=== PATIENT | female | born 1985 | race African-American/Black ===

== ENCOUNTER 2017-03-14 00:19 | Emergency (ER) | payer MEDICAID, OTHER ==
[~2017-03-14] VITALS: Ht 170.2 cm; Wt 127.0 kg
[2017-03-14] MEDS ORDERED: NKM (00:29)
--- NOTE | 2017-03-14 00:52 | Emergency Room Report ---
History of Present Illness General Chief Complaint: Dyspnea/Respdistress Source: Patient Present Illness HPI Patient reports that she has been feeling more short of breath recently With increased exertion Patient reports that she has a cold and flu symptom and feels that this is worsening the symptom Denies any chest pain however she does feel short of breath Also feels worse with laying flat Patient has increased cough denies any vomiting or diarrhea denies any recent travel denies any calf pain or swelling Allergies: Coded Allergies: No Known Allergies (Verified Allergy, Mild, 04/25/07) Patient History Past Medical History: see triage record Pertinent Family History: none Last Menstrual Period: 03/07/17 Now: No Reviewed Nursing Documentation: PMH: Agreed, PSxH: Agreed Nursing Documentation-PMH Past Medical History: No Stated History Review of Systems All Other Systems: negative except mentioned in HPI Physical Exam Vital Signs Date Time Temp Pulse Resp B/P (MAP) Pulse Ox O2 Delivery O2 Flow Rate FiO2 03/14/17 00:25 99.0 107 16 181/98 96 Room Air Sp02 EP Interpretation: reviewed, normal General Appearance: no apparent distress Head: normocephalic, atraumatic Eyes: bilateral eye PERRL, bilateral eye EOMI ENT: hearing grossly normal, normal pharynx, TMs + canals normal, uvula midline Neck: full range of motion, supple, no meningismus, no bony tend Respiratory: no rhonchi, no respiratory distress, no retraction, no accessory muscle use, crackles - both lower lobe Cardiovascular #1: normal peripheral pulses, regular rate, rhythm, no edema, no gallop, no JVD, no murmur Gastrointestinal: normal bowel sounds, non tender, soft, no mass, no organomegaly, non-distended, no guarding, no hernia, no pulsatile mass, no rebound Genitourinary: no CVA tenderness Musculoskeletal: normal inspection Neurologic: oriented x3, responsive, drafter assistant III-XII nml as tested, motor strength/ tone normal, sensory intact Psychiatric: mood/affect normal Skin: normal color, no rash, warm/dry, palpation normal Lymphatic: normal inspection, no adenopathy Medical Decision Making Diagnostic Impression: Primary Impression: Pneumonia ER Course Given the patient's presentation history multiple differentials considered including but not limited to cardiac, cardiopulmonary and vascular pathology Also pulmonary embolism Patient has cold-like symptoms X-ray imaging as noted feel any obvious acute pathology patient is a fairly thick sputum production her Feels better after breathing treatment Patient's heart rate and blood pressure and oxygenation remained appropriate dose and initial response likely related to the albuterol however the patient has done well and at this time will be placed on antibiotics for clinical pneumonia , Labs Test 03/14/17 01:10 White Blood Count 14.2 K/UL (4.8-10.8) Red Blood Count 4.66 M/UL (4.20-5.40) Hemoglobin 12.1 G/DL (12.0-16.0) Hematocrit 38.7 % (37.0-47.0) Mean Corpuscular Volume 83 FL (80-99) Mean Corpuscular Hemoglobin 25.9 PG (27.0-31.0) Mean Corpuscular Hemoglobin Concent 31.3 G/DL (32.0-36.0) Red Cell Distribution Width 14.7 % (11.6-14.8) Platelet Count 426 K/UL (150-450) Mean Platelet Volume 6.4 FL (6.5-10.1) Neutrophils (%) (Auto) 66.3 % (45.0-75.0) Lymphocytes (%) (Auto) 24.1 % (20.0-45.0) Monocytes (%) (Auto) 5.6 % (1.0-10.0) Eosinophils (%) (Auto) 3.0 % (0.0-3.0) Basophils (%) (Auto) 1.0 % (0.0-2.0) Urine HCG, Qualitative Negative Sodium Level 140 mEQ/L (135-145) Potassium Level 3.9 mEQ/L (3.4-4.9) Chloride Level 100 mEQ/L (98-107) Carbon Dioxide Level 26 mEQ/L (20-30) Anion Gap 14 (5-15) Blood Urea Nitrogen 11 mg/dL (7-23) Creatinine 1.0 mg/dL (0.5-0.9) Estimat Glomerular Filtration Rate > 60 mL/min (>60) Glucose Level 118 mg/dL (74-106) Calcium Level 10.0 mg/dL (8.6-10.2) Total Bilirubin 0.2 mg/dL (0.0-1.2) Aspartate Amino Transf (AST/SGOT) 25 U/L (5-40) Alanine Aminotransferase (ALT/SGPT) 17 U/L (3-33) Alkaline Phosphatase 93 U/L (35-104) Total Creatine Kinase 509 U/L (26-140) Creatine Kinase MB 3.0 ng/mL (< 3.8) Creatine Kinase MB Relative Index 0.5 Troponin I < 0.30 ng/mL (<=0.30) Pro-B-Type Natriuretic Peptide 72 pg/mL (0-125) Total Protein 8.6 g/dL (6.6-8.7) Albumin 4.5 g/dL (3.5-5.2) Globulin 4.1 g/dL Albumin/Globulin Ratio 1.0 (1.0-2.7) Urine Opiates Screen Negative (NEGATIVE) Urine Barbiturates Screen Negative (NEGATIVE) Phencyclidine (PCP) Screen Negative (NEGATIVE) Urine Amphetamines Screen Negative (NEGATIVE) Urine Benzodiazepines Screen Negative (NEGATIVE) Urine Cocaine Screen Negative (NEGATIVE) Urine Marijuana (THC) Screen Positive (NEGATIVE) Rhythm Strip Diag. Results EP Interpretation: yes Rate: 98 Rhythm: NSR, no PVC's, no ectopy Chest X-Ray Diagnostic Results Chest X-Ray Diagnostic Results : Chest X-Ray Ordered: Yes # of Views/Limited/Complete: 1 View Indication: Chest Pain EP Interpretation: Yes Interpretation: no consolidation, no effusion, no pneumothorax Impression: No acute disease Interpreting ER Provider: Leo Beth DO Last Vital Signs Date Time Temp Pulse Resp B/P (MAP) Pulse Ox O2 Delivery O2 Flow Rate FiO2 03/14/17 00:25 99.0 107 16 181/98 96 Room Air Status: improved Disposition: HOME, SELF-CARE Condition: Improved Scripts Levofloxacin* (LEVAQUIN*) 750 Mg Tablet 750 MG ORAL DAILY for 7 Days, TAB Prov: LEO BETHOAmy 03/14/17 Albuterol Sulfate* (ALBUTEROL SULFATE MDI*) 8.5 Gm Hfa.aer.ad 2 PUFF INH Q6H, #1 EA 0 Refills Prov: LEO BETH D.O. 03/14/17 Prednisone* (PREDNISONE*) 20 Mg Tablet 20 MG ORAL BID, #8 TAB Prov: LEO BETHOAmy 03/14/17 Additional Instructions: Patient is provided with the discharge instructions notified to follow up with primary doctor in the next 2-3 days otherwise return to the er with any worsening symptoms. Please note that this report is being documented using DRAGON technology. This can lead to erroneous entry secondary to incorrect interpretation by the dictating instrument. LEO BETH D.O. Mar 14, 2017 00:51
[2017-03-14] MEDS ORDERED: Ipratropium 0.02% Inh Soln 2.5ml UD HHN ONE (01:00)
[2017-03-14] MEDS ORDERED: PredniSONE 20mg tab ORAL ONE (01:00)
[2017-03-14] MEDS ORDERED: Albuterol ud Inhalation HHN ONE (01:00)
[2017-03-14] MEDS ORDERED: DuoNeb 0.5-3(2.5)mg/3ml neb ONE (01:03)
[2017-03-14 01:48] LABS: LYMPHOCYTES % (AUTO) 24.1 % (20.0-45.0); MEAN CORPUSCULAR HEMOGLOBIN 25.9 PG (27.0-31.0); MEAN CORPUSCULAR HGB CONC 31.3 G/DL (32.0-36.0); MEAN CORPUSCULAR VOLUME 83 FL (80-99); MEAN PLATELET VOLUME 6.4 FL (6.5-10.1); MONOCYTES % (AUTO) 5.6 % (1.0-10.0); NEUTROPHILS % (AUTO) 66.3 % (45.0-75.0); PLATELET COUNT 426 K/UL (150-450); RED BLOOD COUNT 4.66 M/UL (4.20-5.40); RED CELL DISTRIBUTION WIDTH 14.7 % (11.6-14.8); WHITE BLOOD COUNT 14.2 K/UL (4.8-10.8)
[2017-03-14] MEDS ORDERED: ALBUTEROL SULF8.5 GM INH (02:30)
[2017-03-14] MEDS ORDERED: LEVAQUIN750 MG ORAL (02:30)
[2017-03-14] MEDS ORDERED: PREDNISONE20 MG ORAL (02:30)
[2017-03-14 02:35] LABS: ALANINE AMINOTRANSFERASE 17 U/L (3-33); ANION GAP 14 (5-15); ASPARTATE AMINO TRANSFERASE 25 U/L (5-40); CARBON DIOXIDE 26 mEQ/L (20-30); CHLORIDE 100 mEQ/L (98-107); GLOMERULAR FILTRATION RATE > 60 mL/min (>60); HEMOLYSIS 19; POTASSIUM 3.9 mEQ/L (3.4-4.9); SODIUM 140 mEQ/L (135-145); TOTAL PROTEIN 8.6 g/dL (6.6-8.7)
[2017-03-14 02:45] VITALS: BP 142/74
[2017-03-14] MEDS ORDERED: Levofloxacin 500mg tab ORAL ONE (02:45)
[2017-03-14 02:51] LABS: TROPONIN I < 0.30 ng/mL (<=0.30)
[2017-03-14 03:05] VITALS: BP 142/74
--- NOTE | 2017-03-14 11:26 | Diagnostic Imaging Report ---
Indication: Dyspnea Comparison: None A single view chest radiograph was obtained. Findings: Cardiomediastinal appearance is within normal limits for age. Pulmonary vascularity is appropriate. The diaphragmatic contour is smooth and costophrenic angles are sharp. No pleural effusions are identified. The bones are unremarkable. Impression: No acute findings
--- NOTE | 2017-03-18 15:50 | Cardiology Report ---
APPROVED REPORT EKG Measurement Heart [id number] CT 130P54 [id number] Normal sinus rhythm Septal infarct, age undetermined Abnormal ECG
== END 2017-03-14 03:05 | disposition home or self-care (01) ==
LOC: EMR 01:13
DX: J18.9 Pneumonia, unspecified organism (principal)
CPT/HCPCS: 36415; 71010; 80053; 80300; 81025; 82550; 82553; 83880; 84484; 85025; 93005; 94640; 94664; 96374; 99284; J0360; J7620

== ENCOUNTER 2018-06-06 18:58 | Emergency (ER) | payer OTHER ==
[~2018-06-06] VITALS: Ht 170.2 cm; Wt 127.0 kg
[~2018-06-06 18:58] MED LIST: ALBUTEROL SULF8.5 GM INH; LEVAQUIN750 MG ORAL; NKM; PREDNISONE20 MG ORAL
[2018-06-06 19:11] VITALS: BP 205/137
--- NOTE | 2018-06-06 19:14 | Emergency Room Report ---
History of Present Illness General Chief Complaint: Asthma Source: Patient Present Illness HPI Is a 32-year-old female with no past medical history. She presents with chief complaint is shortness breath. Onset yesterday. She said she had a cold. She has coughing congestion. Coughing productive of sputum. [place] short of breath. Worse with lying flat. Worse with inspiration. Better with sitting up. Denies any chest pain. Has chest tightness however. Subjective fever. Allergies: Coded Allergies: No Known Allergies (Verified Allergy, Mild, 04/25/07) Patient History Past Medical History: see triage record, old chart reviewed Past Surgical History: none Pertinent Family History: none Social History: Reports: smoking Last Menstrual Period: 05/16/2018 Now: No : 0 Para: 0 Immunizations: other Reviewed Nursing Documentation: PMH: Agreed; PSxH: Agreed Nursing Documentation-PMH Hx Cardiac Problems: No - pneumonia Hx Asthma: Yes Review of Systems Eye: Denies: eye pain, blurred vision ENT: Denies: ear pain, nose congestion, throat swelling Respiratory: Reports: cough, shortness of breath Cardiovascular: Denies: chest pain, palpitations Gastrointestinal: Denies: abdominal pain, diarrhea, nausea, vomiting Musculoskeletal: Denies: back pain, joint pain Skin: Denies: rash Neurological: Denies: headache, numbness Endocrine: Denies: increased thirst, increased urine Hematologic/Lymphatic: Denies: easy bruising All Other Systems: negative except mentioned in HPI Physical Exam Vital Signs Date Time Temp Pulse Resp B/P (MAP) Pulse Ox O2 Delivery O2 Flow Rate FiO2 06/06/18 19:02 98.2 130 39 91 Room Air 06/06/18 19:11 205/137 2.0 vitals with tachycardia and high blood pressure Sp02 EP Interpretation: abnormal General Appearance: mild distress, obese Head: normocephalic, atraumatic Eyes: bilateral eye PERRL, bilateral eye EOMI ENT: hearing grossly normal, normal pharynx Neck: full range of motion, supple, no meningismus Respiratory: chest non-tender, respiratory distress, decreased breath sounds, accessory muscle use, wheezing Cardiovascular #1: regular rate, rhythm, no murmur Gastrointestinal: normal bowel sounds, non tender, no mass, no organomegaly, no bruit, non-distended Musculoskeletal: back normal, gait/station normal, normal range of motion Psychiatric: mood/affect normal Skin: warm/dry Medical Decision Making Diagnostic Impression: Primary Impression: Bronchitis, acute, with bronchospasm Additional Impressions: Hypertension Qualified Codes: I10 - Essential (primary) hypertension Proteinuria Qualified Codes: R80.9 - Proteinuria, unspecified ER Course Patient presents with acute bronchitis with bronchospasm. Greatly improved after never lasted treatment and steroid. No evidence of ACS, PE, dissection to name a few. Chest x-rays clear. No evidence of any fluid overloaded. But pressure initially was very high. Is still elevated but much improved. She said she gained a lot of weight in the last year. This may contribute to her blood pressure elevation. We'll go ahead and treat with blood pressure medication. Last Vital Signs Date Time Temp Pulse Resp B/P (MAP) Pulse Ox O2 Delivery O2 Flow Rate FiO2 06/06/18 19:11 98.2 119 29 205/137 96 Nasal Cannula 2.0 Status: improved Disposition: HOME, SELF-CARE Condition: Stable Scripts Losartan/Hydrochlorothiazide 50-12.5 Tablet* (HYZAAR 50-12.5 TABLET*) 1 Each Tablet 1 TAB ORAL DAILY, #90 TAB Prov: Frank Conner MD 06/06/18 Prednisone* (PREDNISONE*) 20 Mg Tablet 40 MG ORAL DAILY, #10 TAB Prov: Frank Conner MD 06/06/18 Albuterol Sulfate* (ALBUTEROL SULFATE MDI*) 8.5 Gm Hfa.aer.ad 2 PUFF INH Q4H PRN for cough/wheezing, #1 EA 0 Refills Prov: Frank Conner MD 06/06/18 Additional Instructions: Follow-up with doctor in 7 days. Return if symptom worsen. Quit smoking. Frank Conner MD Jun 06, 2018 19:14
[2018-06-06] MEDS ORDERED: Solu-MEDROL 125mg Inj IVP ONE (19:15)
[2018-06-06] MEDS ORDERED: Ipratropium 0.02% Inh Soln 2.5ml UD HHN ONE (19:15)
[2018-06-06] MEDS ORDERED: Albuterol ud Inhalation HHN ONE ×2 (19:15→20:45)
[2018-06-06 19:26] LABS: BASOPHILS % (AUTO) 1.8 % (0.0-2.0); EOSINOPHILS % (AUTO) 3.5 % (0.0-3.0); HEMATOCRIT 40.3 % (37.0-47.0); HEMOGLOBIN 12.8 G/DL (12.0-16.0); LYMPHOCYTES % (AUTO) 17.4 % (20.0-45.0); MEAN CORPUSCULAR VOLUME 79 FL (80-99); MONOCYTES % (AUTO) 5.9 % (1.0-10.0); NEUTROPHILS % (AUTO) 71.4 % (45.0-75.0); PLATELET COUNT 274 K/UL (150-450); RED CELL DISTRIBUTION WIDTH 15.3 % (11.6-14.8); WHITE BLOOD COUNT 13.2 K/UL (4.8-10.8)
[2018-06-06 19:36] LABS: ANION GAP 12 mmol/L (5-15); BLOOD UREA NITROGEN 14 mg/dL (7-18); CALCIUM 9.5 MG/DL (8.5-10.1); CARBON DIOXIDE 22 MMOL/L (21-32); CHLORIDE 103 MMOL/L (98-107); POTASSIUM 4.4 MMOL/L (3.5-5.1); SODIUM 137 MMOL/L (136-145)
--- NOTE | 2018-06-06 19:41 | Diagnostic Imaging Report ---
EXAM: XR Chest, 1 View CLINICAL HISTORY: SOB TECHNIQUE: Frontal view of the chest. COMPARISON: Chest x-ray dated 03/14/2017 FINDINGS: Lungs: Unremarkable. No consolidation. Pleural space: Unremarkable. No pneumothorax. Heart: Unremarkable. No cardiomegaly. Mediastinum: Unremarkable. Bones/joints: Unremarkable. IMPRESSION: Normal chest x-ray.
[2018-06-06 20:00] LABS: APPEARANCE,URINE CLEAR; BILIRUBIN, URINE NEGATIVE (NEGATIVE); COLOR,URINE PALE YELLOW; GLUCOSE, URINE (UA) NEGATIVE (NEGATIVE); KETONES,URINE NEGATIVE (NEGATIVE); LEUKOCYTE ESTERASE ,URINE 1+ (NEGATIVE); NITRITE,URINE NEGATIVE (NEGATIVE); PH,URINE 6 (4.5-8.0); PROTEIN,URINE 4+ (NEGATIVE); UROBILINOGEN,URINE NORMAL MG/DL (0.0-1.0)
[2018-06-06 20:52] VITALS: BP 158/96
[2018-06-06] MEDS ORDERED: ALBUTEROL SULF8.5 GM INH (20:59)
[2018-06-06] MEDS ORDERED: HYZAAR 50-12.51 EACH ORAL (20:59)
[2018-06-06] MEDS ORDERED: PREDNISONE20 MG ORAL (20:59)
[2018-06-06 21:14] VITALS: BP 158/96
== END 2018-06-06 21:14 | disposition home or self-care (01) ==
LOC: EMR 19:25
DX: J20.9 Acute bronchitis, unspecified (principal); I10 Essential (primary) hypertension; R80.9 Proteinuria, unspecified; F17.200 Nicotine dependence, unspecified, uncomplicated
CPT/HCPCS: 36415; 71045; 80048; 80307; 81001; 81025; 83880; 85025; 94640; 96374; 99284; J2930

== ENCOUNTER 2019-11-10 19:47 | Emergency (ER) | payer OTHER ==
[~2019-11-10] VITALS: Ht 167.6 cm; Wt 142.9 kg
--- NOTE | 2019-11-10 19:42 | NUR ---
ED Nurse Note: ERMD at bedside.
[2019-11-10 19:43] VITALS: BP_SYST 138; BP_SYST 192; BP_DIAS 137; BP_DIAS 85
[~2019-11-10 19:47] MED LIST changes: +HYZAAR 50-12.51 EACH ORAL
--- NOTE | 2019-11-10 19:47 | NUR ---
ED Nurse Note: Patient walked in from home d/t SOB for a couple of days, patient has asthma and has been unresolved for a couple of days. Patient aao x 4 and ambulatory. Patient placed on monitor. No acute distress noted during assessment.
--- NOTE | 2019-11-10 19:51 | Emergency Room Report ---
History of Present Illness General Chief Complaint: Asthma Source: Patient Present Illness HPI Patient is a 34-year-old female with history of asthma who presents after increased difficulty with breathing. Had prior history of asthma and had no relief with her inhaler. Previously been on steroids. Reports having increased nasal congestion as well as minimally productive cough. She been taking Robitussin without any improvement. Denies any fever. Denies any improvement with her medications. Denies any increased leg pain or swelling. Denies being . Allergies: Coded Allergies: No Known Allergies (Verified , 04/25/07) COVID-19 Screening Contact w/high risk pt: No Recent Travel to affected area: No Experienced COVID-19 symptoms?: Yes COVID-19 symptoms experienced: Shortness of Breath Patient History Past Medical History: see triage record Now: No Reviewed Nursing Documentation: PMH: Agreed; PSxH: Agreed Nursing Documentation-PMH Hx Cardiac Problems: No - pneumonia Hx Asthma: Yes Review of Systems All Other Systems: negative except mentioned in HPI Physical Exam Vital Signs Date Time Temp Pulse Resp B/P (MAP) Pulse Ox O2 Delivery O2 Flow Rate FiO2 11/10/19 19:31 98.2 119 22 143/90 (107) 89 Room Air 11/10/19 19:43 4.0 Sp02 EP Interpretation: reviewed, normal General Appearance: normal inspection, well appearing, no apparent distress, alert, GCS 15, non-toxic Head: atraumatic ENT: normal ENT inspection, hearing grossly normal, normal voice Neck: normal inspection, full range of motion, supple, no bony tend Respiratory: normal inspection, lungs clear, normal breath sounds, no respiratory distress, no retraction, no wheezing Cardiovascular #1: regular rate, rhythm, no edema Gastrointestinal: normal inspection, normal bowel sounds, non tender, soft, no guarding, no hernia Genitourinary: no CVA tenderness Musculoskeletal: normal inspection, back normal, normal range of motion Neurologic: alert, motor strength/tone normal, accounts payable specialist III-XII nml as tested, oriented x3, responsive, speech normal, normal inspection Psychiatric: normal inspection, judgement/insight normal, mood/affect normal Skin: palpation normal Medical Decision Making Diagnostic Impression: Primary Impression: Asthma Additional Impression: Hypertension ER Course Patient presented for cough. Differential diagnosis include was not limited to viral respiratory infection, upper respiratory infection, bronchitis, pneumonia among others. Patient has a benign exam Patient is afebrile with no known sick contacts or recent travel. Does not appear to be in any respiratory distress. Oxygen saturation is normal and patient is currently afebrile. Is not taking antipyretics. Patient was noted to have symptoms consistent with a asthma exacerbation patient was advised to self quarantine. Was advised to return if began having fever increased difficulty breathing or other concerns. Patient was given prescription for blood pressure medication and states that she has chronic hypertension which she is not currently take any medication for. The patient is advised to follow up with primary care doctor for recheck. Patient is advised to return if any worsening condition or if any changes in status that are concerning. Last Vital Signs Date Time Temp Pulse Resp B/P (MAP) Pulse Ox O2 Delivery O2 Flow Rate FiO2 11/10/19 19:43 115 22 Nasal Cannula 4.0 11/10/19 19:43 98.2 138/85 100 Status: improved Disposition: HOME, SELF-CARE Condition: Stable Scripts Amlodipine Besylate (Norvasc) 5 Mg Tablet 5 MG ORAL DAILY, #30 TAB Prov: Geovanny Pedroza MD 11/10/19 Prednisone* (PREDNISONE*) 20 Mg Tablet 40 MG ORAL DAILY, #10 TAB Prov: Geovanny Pedroza MD 11/10/19 Montelukast Sodium* (SINGULAIR*) 10 Mg Tablet 10 MG ORAL DAILY, #14 TAB Prov: Geovanny Pedroza MD 11/10/19 Azithromycin* (ZITHROMAX*) 250 Mg Tablet 250 MG ORAL DAILY, #6 TAB 0 Refills Take two tables once daily for 1 day, then one tablet once daily for 4 days. Prov: Geovanny Pedroza MD 11/10/19 Geovanny Pedroza MD Nov 10, 2019 19:51
--- NOTE | 2019-11-10 19:52 | NUR ---
ED Nurse Note: YAMEL made aware of elevated blood pressure. Per patient, she was prescribed Losartan, unknown dose, patient does not take medication d/t side effects.
--- NOTE | 2019-11-10 19:56 | NUR ---
ED Nurse Note: RT at bedside with breathing treatment.
[2019-11-10] MEDS ORDERED: Albuterol/Ipratropium 3ml neb HHN ONE (20:00)
--- NOTE | 2019-11-10 20:02 | NUR ---
ED Nurse Note: Xray at bedside.
--- NOTE | 2019-11-10 20:19 | NUR ---
ED Nurse Note: ERMD at bedside
--- NOTE | 2019-11-10 20:36 | Diagnostic Imaging Report ---
Chest 1 view History: Shortness of breath Comparison: 06/06/2018 Findings: Bilateral lung hazy groundglass opacities are seen with sparing of the right and left upper lung. Consistent with pneumonia. Viral pneumonia may also be considered. Mediastinum heart are normal. Negative for pleural effusion. Bones are unremarkable. Impression: 1. Right lower lobe, left mid to lower lung hazy groundglass opacities suggestive of pneumonia including viral pneumonia.
[2019-11-10] MEDS ORDERED: ZITHROMAX250 MG ORAL (20:52)
[2019-11-10] MEDS ORDERED: SINGULAIR10 MG ORAL (20:52)
[2019-11-10] MEDS ORDERED: PREDNISONE20 MG ORAL (20:52)
[2019-11-10] MEDS ORDERED: NORVASC5 MG ORAL (20:56)
[2019-11-10 21:46] VITALS: BP 191/144
--- NOTE | 2019-11-10 21:46 | NUR ---
ER DISCHARGE NOTE: Patient is cleared to be discharged per ERMD, ERMD aware of elevated blood pressure, ok to discharge. pt is aox4, on room air, with stable vital signs. pt was given dc and prescription instructions, pt was able to verbalize understanding, pt id band removed. pt is able to ambulate with steady gait. pt took all belongings. pt stable upon discharge.
== END 2019-11-10 21:46 | disposition home or self-care (01) ==
LOC: EMR 20:08
DX: J45.909 Unspecified asthma, uncomplicated (principal); I10 Essential (primary) hypertension; R06.02 Shortness of breath
CPT/HCPCS: 71045; 81025; J7512; Z7502; 99284; J7620

== ENCOUNTER 2019-12-28 20:09 | Emergency (ER) | payer OTHER ==
[~2019-12-28] VITALS: Ht 165.1 cm; Wt 108.9 kg
[~2019-12-28 20:09] MED LIST changes: +NORVASC5 MG ORAL; +SINGULAIR10 MG ORAL; +ZITHROMAX250 MG ORAL
[2019-12-28] MEDS ORDERED: LORazepam Inj 2mg/ml 1ml IM ONE (20:30)
[2019-12-28 20:40] VITALS: BP 195/120
--- NOTE | 2019-12-28 20:40 | NUR ---
ED Nurse Note: Pt brought into ED by ISAURA Trevino for c/o feeling anxious and elevated BP. Pt notes she has been extrmemly stressed at home due to losing her home and is also noncompliant with her BP medication. Pt appears midly anxious, otherwise no acute distress. Pt is aaox4, no respiratory or cardiac distress noted.
--- NOTE | 2019-12-28 22:00 | NUR ---
ED Nurse Note: Pt notes she feels better after receiving ativan. Pt appears more relaxed at this time.
--- NOTE | 2019-12-28 22:10 | Emergency Room Report ---
History of Present Illness General Chief Complaint: Behavioral Complaint Present Illness HPI 34-year-old female with history of hypertension brought in by paramedics due to anxiety. Patient reports that she stopped taking blood pressure medication about a month ago. Denies any chest pain at this time. Complains of palpitation after she had 3 bottles of beer earlier today. Denies any lightheadedness. Patient has an upcoming appointment with primary doctor. Denies any drug use or tobacco smoke. 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 Denies any SI and HI. Denies at this time. Complains of spotting reports that she just started her period today. Has not taken medication for symptom relief. Denies loss of taste and smell, fever and chills, abdominal pain, nausea vomiting diarrhea. Blood pressure appears to be 195/100 upon arrival however subsided after Ativan was administered. Patient felt more calm. Allergies: Coded Allergies: No Known Allergies (Verified , 04/25/07) COVID-19 Screening Contact w/high risk pt: No Recent Travel to affected area: No Experienced COVID-19 symptoms?: Yes COVID-19 symptoms experienced: Shortness of Breath COVID-19 Testing performed CRANE HOIST OR LIFT OPERATOR: No Patient History Past Medical History: see triage record Past Surgical History: none Pertinent Family History: none Now: No Immunizations: UTD Reviewed Nursing Documentation: PMH: Agreed; PSxH: Agreed Nursing Documentation-PMH Hx Cardiac Problems: No - pneumonia Hx Hypertension: Yes Hx Asthma: Yes Review of Systems All Other Systems: negative except mentioned in HPI Physical Exam Vital Signs Date Time Temp Pulse Resp B/P (MAP) Pulse Ox O2 Delivery O2 Flow Rate FiO2 12/28/19 20:13 99.1 98 16 195/120 (145) 97 Room Air Sp02 EP Interpretation: abnormal - Elevated blood pressure General Appearance: no apparent distress, alert, GCS 15, non-toxic Head: normocephalic, atraumatic Eyes: bilateral eye normal inspection, bilateral eye PERRL ENT: hearing grossly normal, normal pharynx, no angioedema, normal voice Neck: full range of motion, supple/symm/no masses Respiratory: chest non-tender, lungs clear, normal breath sounds, no rhonchi, speaking full sentences Cardiovascular #1: regular rate, rhythm, no edema, no murmur Cardiovascular #2: 2+ carotid (R), 2+ carotid (L), 2+ radial (R), 2+ radial (L) Gastrointestinal: normal bowel sounds, non tender, soft, non-distended, no guarding, no rebound Rectal: deferred Musculoskeletal: back normal, no calf tenderness Neurologic: alert, motor strength/tone normal, oriented x3, sensory intact, responsive, speech normal Psychiatric: judgement/insight normal, memory normal, mood/affect normal, no suicidal/homicidal ideation Skin: no rash Lymphatic: no adenopathy Medical Decision Making PA Attestation All my diagnosis and treatment plans were reviewed ad discussed with my supervising physician Dr. Reed Diagnostic Impression: Primary Impression: Anxiety Additional Impression: HTN (hypertension) ER Course 34-year-old female with history of hypertension brought in by paramedics due to anxiety. Patient reports that she stopped taking blood pressure medication about a month ago. Denies any chest pain at this time. Complains of palpitation after she had 3 bottles of beer earlier today. Denies any lightheadedness. Patient has an upcoming appointment with primary doctor. Denies any drug use or tobacco smoke. 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 Denies any SI and HI. Denies at this time. Complains of spotting reports that she just started her period today. Has not taken medication for symptom relief. Denies loss of taste and smell, fever and chills, abdominal pain, nausea vomiting diarrhea. Blood pressure appears to be 195/100 upon arrival however subsided after Ativan was administered. Patient felt more calm. Ddx considered but are not limited to: generalized anxiety disorder, panic attack, depression with psychotic feature, bipolar disorder, drug overdose Vital signs: are WNL, pt. is afebrile H&PE are most consistent with: Anxiety, hypertension ORDERS: EKG, chest x-ray, tox screen, urine , propranolol to help with both blood pressure and anxiety ED INTERVENTIONS: 1 g Ativan IM DISCHARGE: At this time pt. is stable for d/c to home. Will provide printed patient care instructions, and any necessary prescriptions. Care plan and follow up instructions have been discussed with the patient prior to discharge. After consulting with my supervising physician we decided to do a chest x-ray and EKG patient does not meet the criteria for further evaluation. Patient follow-up primary doctor. Patient felt better after administration of Ativan. If worsening symptoms return to the emergency room. Also resume taking blood pressure medication by primary doctor EKG Diagnostic Results Rate: tachycardiac Rhythm: other - Slightly tachycardic due to anxietu ST Segments: no acute changes Other Impression No acute ST changes Chest X-Ray Diagnostic Results Chest X-Ray Diagnostic Results : Chest X-Ray Ordered: Yes # of Views/Limited/Complete: 1 View Indication: Other EP Interpretation: Yes PA Xray: Interpretation reviewed, by supervising MD, and agrees with findings. Interpretation: no consolidation, no effusion, no pneumothorax Impression: No acute disease Electronically Signed by: Martín Martinez PA-C Last Vital Signs Date Time Temp Pulse Resp B/P (MAP) Pulse Ox O2 Delivery O2 Flow Rate FiO2 12/28/19 20:13 99.1 98 16 195/120 (145) 97 Room Air Disposition: HOME, SELF-CARE Condition: Stable Scripts Propranolol Hcl* (INDERAL*) 10 Mg Tablet 10 MG ORAL BID for 5 Days, #10 TAB 0 Refills Prov: Martín Denny 12/28/19 Referrals: [facility],REFERRING (PCP) Patient Instructions: Generalized Anxiety Disorder, Hypertension, [id number] Additional Instructions: Take medication as directed, follow-up with your primary doctor for referral to psychiatrist and resuming of your blood pressure medication blood work. If worsening symptoms return to the emergency room. Avoid drinking alcohol. Martín Denny Dec 28, 2019 22:10
[2019-12-28] MEDS ORDERED: PROPRANOLOL HCL10 MG ORAL (22:11)
[2019-12-28 22:25] VITALS: BP 160/98
--- NOTE | 2019-12-28 22:25 | NUR ---
ER DISCHARGE NOTE: Patient is cleared to be discharged per ERMD, pt is aox4, on room air, with stable vital signs. pt was given dc and follow up instructions, pt was able to verbalize understanding, pt id band removed. pt is able to ambulate with steady gait. pt took all belongings.
[2019-12-28 22:31] LABS: APPEARANCE,URINE CLOUDY; BILIRUBIN, URINE NEGATIVE (NEGATIVE); COLOR,URINE PALE YELLOW; GLUCOSE, URINE (UA) NEGATIVE (NEGATIVE); KETONES,URINE NEGATIVE (NEGATIVE); LEUKOCYTE ESTERASE ,URINE 2+ (NEGATIVE); NITRITE,URINE NEGATIVE (NEGATIVE); PH,URINE 6 (4.5-8.0); PROTEIN,URINE 3+ (NEGATIVE); UROBILINOGEN,URINE NORMAL MG/DL (0.0-1.0)
--- NOTE | 2019-12-29 11:14 | Diagnostic Imaging Report ---
Indication: Shortness of breath Technique: One view of the chest Comparison: 11/10/2019 Findings: The heart is borderline enlarged. There are bilateral right greater than left interstitial and airspace infiltrates versus edema less severe than on the prior study. The pleural spaces are clear. The heart size is upper limits normal. Impression: Bilateral right greater than left interstitial and airspace infiltrates versus edema, less extensive than on prior study 11/10/2019
== END 2019-12-28 22:25 | disposition home or self-care (01) ==
LOC: EDBD 20:09 → EDUNIT# 20:09 → EMR 21:07
DX: F41.9 Anxiety disorder, unspecified (principal); I10 Essential (primary) hypertension; R06.02 Shortness of breath; R00.0 Tachycardia, unspecified
CPT/HCPCS: 71045; 80307; 81003; 81025; 93005; 96372; 99283

== ENCOUNTER 2020-06-10 11:01 | Inpatient (IN) | payer OTHER ==
[~2020-06-10] VITALS: Ht 167.6 cm; Wt 143.3 kg
[~2020-06-10 11:01] MED LIST changes: +PROPRANOLOL HCL10 MG ORAL
[2020-06-10 11:10] VITALS: BP 159/94
--- NOTE | 2020-06-10 11:10 | NUR ---
ED Nurse Note: Pt walked in to ED from home c/o non radiating left side chest pain x4 days. Pt also reports heavy vaginal bleeding with big blood clots that is been going on since 05/28/20. Pt BP is around 200s, pt has stopped taking her BP meds for 2 days. AAOx4, verbally responsive. No SOB, on room air. Pt placed on manager cardiac cath. ERMD at bedside.
[2020-06-10] MEDS ORDERED: METOPROLOL TART25 MG ORAL (11:11)
[2020-06-10] MEDS ORDERED: HYDROCHLOROTHIA25 MG ORAL (11:12)
--- NOTE | 2020-06-10 11:38 | NUR ---
ED Nurse Note: IV line established. Blood and urine specimen sent to lab.
--- NOTE | 2020-06-10 11:45 | NUR ---
ED Nurse Note: US at bedside.
[2020-06-10 12:03] LABS: BASOPHILS % (AUTO) 1.2 % (0.0-2.0); EOSINOPHILS % (AUTO) 2.9 % (0.0-3.0); HEMOGLOBIN 10.2 G/DL (12.0-16.0); LYMPHOCYTES % (AUTO) 16.5 % (20.0-45.0); MEAN CORPUSCULAR VOLUME 83 FL (80-99); MONOCYTES % (AUTO) 4.7 % (1.0-10.0); NEUTROPHILS % (AUTO) 74.7 % (45.0-75.0); PLATELET COUNT 284 K/UL (150-450); RED BLOOD COUNT 4.23 M/UL (4.20-5.40); RED CELL DISTRIBUTION WIDTH 18.6 % (11.6-14.8); WHITE BLOOD COUNT 11.8 K/UL (4.8-10.8)
[2020-06-10 12:06] LABS: APPEARANCE,URINE VERY CLOUDY; BILIRUBIN, URINE NEGATIVE (NEGATIVE); GLUCOSE, URINE (UA) NEGATIVE (NEGATIVE); KETONES,URINE 1+ (NEGATIVE); LEUKOCYTE ESTERASE ,URINE 2+ (NEGATIVE); NITRITE,URINE NEGATIVE (NEGATIVE); PH,URINE 6.5 (4.5-8.0); PROTEIN,URINE 4+ (NEGATIVE); UROBILINOGEN,URINE NORMAL MG/DL (0.0-1.0)
[2020-06-10 12:09] LABS: COLOR,URINE RED
--- NOTE | 2020-06-10 12:30 | NUR ---
ED Nurse Note: Xray at bedside.
[2020-06-10 12:33] LABS: ANION GAP 8 mmol/L (5-15); BLOOD UREA NITROGEN 9 mg/dL (7-18); CALCIUM 8.5 MG/DL (8.5-10.1); CARBON DIOXIDE 27 MMOL/L (21-32); CHLORIDE 103 MMOL/L (98-107); SODIUM 138 MMOL/L (136-145)
[2020-06-10 12:36] LABS: ALANINE AMINOTRANSFERASE 19 U/L (12-78); ALBUMIN 3.4 G/DL (3.4-5.0); ALBUMIN/GLOBULIN RATIO 0.8 (1.0-2.7); ALKALINE PHOSPHATASE 87 U/L (46-116); ASPARTATE AMINO TRANSFERASE 32 U/L (15-37); BILIRUBIN,TOTAL 0.4 MG/DL (0.2-1.0)
--- NOTE | 2020-06-10 12:52 | Diagnostic Imaging Report ---
EXAM: US Pelvis Transabdominal and Transvaginal, Complete CLINICAL HISTORY: ABD PAIN TECHNIQUE: Real-time complete transabdominal and transvaginal pelvic ultrasound with image documentation. Transvaginal imaging was used for better evaluation of the endometrium and adnexa. COMPARISON: None FINDINGS: Uterus: Measures 9.1 x 4.6 x 5.1 cm. Nabothian cysts in the cervix. Endometrium measures 7.5 mm. Right ovary: Measures 1.3 x 1.7 x 1.3 cm. Normal appearance with normal color Doppler flow. Left ovary: Not visualized due to overlying bowel gas. Other: Rounded anechoic structure in the cul-de-sac may represent free fluid versus cyst. IMPRESSION: 1. Rounded anechoic structure in the cul-de-sac may represent free fluid versus cyst. 2. Left ovary not visualized due to overlying bowel gas.
--- NOTE | 2020-06-10 13:01 | Diagnostic Imaging Report ---
EXAM: XR Chest, 1 View CLINICAL HISTORY: ABD PAIN TECHNIQUE: Frontal view of the chest. COMPARISON: Chest radiograph on 12/28/2019 FINDINGS: Hardware: None. Lungs/pleura: Normal. No focal consolidation. No pleural effusion or pneumothorax. Heart/mediastinum: Normal. No cardiomegaly. Soft tissues: Unremarkable. Bones: No acute fracture. Upper abdomen: Normal. IMPRESSION: No acute disease identified.
[2020-06-10 14:00] VITALS: BP 161/99
--- NOTE | 2020-06-10 14:28 | Emergency Room Report ---
History of Present Illness General Chief Complaint: Chest Pain Source: Patient Present Illness HPI 34-year-old female presents to ED for chest pain. Has had on and off chest pain for the last 4 days. Comes and goes. Across her chest. Dull, 7 out of 10, nonradiating. Denies chest pain at this time. Denies shortness of breath. States she is also been having vaginal bleeding for the last 2 weeks. States that this is not in sync with her period. States she had a. Previously which lasted longer than usual then subsided and then she started bleeding again. Denies any blood thinners. Does not believe she is . Denies any abdominal pain. No other aggravating relieving factors. Denies any other associated symptoms Allergies: Coded Allergies: No Known Allergies (Verified , 04/25/07) COVID-19 Screening Contact w/high risk pt: No Recent Travel to affected area: No Experienced COVID-19 symptoms?: No COVID-19 symptoms experienced: Shortness of Breath COVID-19 Testing performed POURER: No Patient History Past Medical History: HTN, asthma Past Surgical History: none Pertinent Family History: none Social History: Denies: smoking, alcohol use, drug use Now: No Immunizations: UTD Reviewed Nursing Documentation: PMH: Agreed; PSxH: Agreed Nursing Documentation-PMH Hx Cardiac Problems: No - pneumonia Hx Hypertension: Yes Hx Asthma: Yes Review of Systems All Other Systems: negative except mentioned in HPI Physical Exam Vital Signs Date Time Temp Pulse Resp B/P (MAP) Pulse Ox O2 Delivery O2 Flow Rate FiO2 06/10/20 11:04 97.7 95 18 187/119 (141) 96 Room Air Sp02 EP Interpretation: reviewed, normal General Appearance: no apparent distress, alert, GCS 15, non-toxic, obese Head: normocephalic, atraumatic Eyes: bilateral eye normal inspection, bilateral eye PERRL ENT: hearing grossly normal, normal pharynx, no angioedema, normal voice Neck: full range of motion, supple/symm/no masses Respiratory: chest non-tender, lungs clear, normal breath sounds, speaking full sentences Cardiovascular #1: regular rate, rhythm, no edema Cardiovascular #2: 2+ carotid (R), 2+ carotid (L), 2+ radial (R), 2+ radial (L), 2+ dorsalis pedis (R), 2+ dorsalis pedis (L) Gastrointestinal: normal bowel sounds, non tender, soft, non-distended, no guarding, no rebound Rectal: deferred Genitourinary: normal inspection, no CVA tenderness Musculoskeletal: back normal, normal range of motion, gait/station normal, non- tender Neurologic: alert, motor strength/tone normal, oriented x3, sensory intact, responsive, speech normal Psychiatric: judgement/insight normal, memory normal, mood/affect normal, no suicidal/homicidal ideation Reflexes: 3+ bicep (R), 3+ bicep (L), 3+ tricep (R), 3+ tricep (L), 3+ knee (R), 3+ knee (L) Lymphatic: no adenopathy Procedures Critical Care Time Critical Care Time i. I feel this is a highly complex case requiring extensive working including EKG/Rhythm strip, Xray/CT/US, Blood/urine lab work, repeat exams while in ED, and administration of strong opiates/narcotics for pain control, admission to hospital or close patient follow up. Total time: 60 min bedside evaluation and treatment excludes procedures (EKG). Reason for critical care: NSTEMI, vaginal bleeding Possible complications: hypotension, hypertension, CO, shock, arrhythmias, metabolic acidosis, end organ damage, respiratory failure. Interventions: Labs, EKG, chest x-ray, IV fluids, pelvic ultrasound, interpretation of EKG, aspirin, discussion with cardiology Course: Patient presenting with chest pain, vaginal bleeding. EKG shows no acute ST elevations. Troponin elevated. Hemoglobin within normal limits. Ultrasound shows no acute findings. Given aspirin. Lovenox/heparin withheld as per discussion with cardiology due to vaginal bleeding. Consultations: nursing staff, EMS, family Performed by: Dr Vaughn Tolerated well condition = serious j. because of unstable vital signs this patient had a condition that could potentially threaten life or limb. I feel this is a critical patient who required my full attention while patient was considered critical. Total Critical Care Time excluding procedures was greater than 60 yes palpation minutes Medical Decision Making Diagnostic Impression: Primary Impression: NSTEMI (non-ST elevated myocardial infarction) Additional Impression: Vaginal bleeding ER Course Hospital Course 34-year-old female presents with chest pain and vaginal bleeding Differential diagnoses include: CO/unstable angina, PE, anemia, fibroids Clinical course Patient placed on stretcher. After initial history and physical I ordered labs, IV fluids, EKG, chest x-ray, ultrasound labs reviewed- no leukocytosis, hemoglobin/hematocrit stable, electrolytes okay D-dimer negative,, troponin elevated, drug screen positive for marijuana EKG-NSR, no acute ischemic changes interpreted by me Chest x-ray- no acute process Pelvic ultrasound shows no finding to explain vaginal bleeding Given aspirin. Given IV fluids. Discussed with cardiology and given vaginal bleeding heparin/Lovenox will be withheld at this time Case discussed with Dr. Myles and he agreed to accept the patient to his service for further care and support I. I feel this is a highly complex case requiring extensive working including EKG/Rhythm strip, Xray/CT/US, Blood/urine lab work, repeat exams while in ED, and administration of strong opiates/narcotics for pain control, admission to hospital or close patient follow up. Diagnosis - NSTEMI, vaginal bleeding admitted to [facility] in serious condition Labs Test 06/10/20 11:38 06/10/20 16:10 White Blood Count 11.8 K/UL (4.8-10.8) Red Blood Count 4.23 M/UL (4.20-5.40) Hemoglobin 10.2 G/DL (12.0-16.0) Hematocrit 35.0 % (37.0-47.0) Mean Corpuscular Volume 83 FL (80-99) Mean Corpuscular Hemoglobin 24.2 PG (27.0-31.0) Mean Corpuscular Hemoglobin Concent 29.3 G/DL (32.0-36.0) Red Cell Distribution Width 18.6 % (11.6-14.8) Platelet Count 284 K/UL (150-450) Mean Platelet Volume 7.8 FL (6.5-10.1) Neutrophils (%) (Auto) 74.7 % (45.0-75.0) Lymphocytes (%) (Auto) 16.5 % (20.0-45.0) Monocytes (%) (Auto) 4.7 % (1.0-10.0) Eosinophils (%) (Auto) 2.9 % (0.0-3.0) Basophils (%) (Auto) 1.2 % (0.0-2.0) Prothrombin Time 10.8 SEC (9.30-11.50) Prothromb Time International Ratio 1.0 (0.9-1.1) Activated Partial Thromboplast Time 28 SEC (23-33) D-Dimer 0.26 mg/L FEU (0.00-0.49) Urine Color Red Urine Appearance Very cloudy Urine pH 6.5 (4.5-8.0) Urine Specific [place] 1.015 (1.005-1.035) Urine Protein 4+ (NEGATIVE) Urine Glucose (UA) Negative (NEGATIVE) Urine Ketones 1+ (NEGATIVE) Urine Blood 5+ (NEGATIVE) Urine Nitrite Negative (NEGATIVE) Urine Bilirubin Negative (NEGATIVE) Urine Urobilinogen Normal MG/DL (0.0-1.0) Urine Leukocyte Esterase 2+ (NEGATIVE) Urine RBC Tntc /HPF (0 - 2) Urine WBC 2-4 /HPF (0 - 2) Urine Squamous Epithelial Cells Few /LPF (NONE/OCC) Urine Bacteria Few /HPF (NONE) Urine HCG, Qualitative Negative (NEGATIVE) Sodium Level 138 MMOL/L (136-145) Potassium Level 4.0 MMOL/L (3.5-5.1) Chloride Level 103 MMOL/L (98-107) Carbon Dioxide Level 27 MMOL/L (21-32) Anion Gap 8 mmol/L (5-15) Blood Urea Nitrogen 9 mg/dL (7-18) Creatinine 1.0 MG/DL (0.55-1.30) Estimat Glomerular Filtration Rate > 60 mL/min (>60) Glucose Level 120 MG/DL (74-106) Calcium Level 8.5 MG/DL (8.5-10.1) Total Bilirubin 0.4 MG/DL (0.2-1.0) Aspartate Amino Transf (AST/SGOT) 32 U/L (15-37) Alanine Aminotransferase (ALT/SGPT) 19 U/L (12-78) Alkaline Phosphatase 87 U/L (46-116) Troponin I 1.295 ng/mL (0.000-0.056) 1.356 ng/mL (0.000-0.056) Total Protein 7.7 G/DL (6.4-8.2) Albumin 3.4 G/DL (3.4-5.0) Globulin 4.3 g/dL Albumin/Globulin Ratio 0.8 (1.0-2.7) Urine Opiates Screen Negative (NEGATIVE) Urine Barbiturates Screen Negative (NEGATIVE) Phencyclidine (PCP) Screen Negative (NEGATIVE) Urine Amphetamines Screen Negative (NEGATIVE) Urine Benzodiazepines Screen Negative (NEGATIVE) Urine Cocaine Screen Negative (NEGATIVE) Urine Marijuana (THC) Screen Positive (NEGATIVE) EKG Diagnostic Results Troponin ordered: Yes Rate: normal Rhythm: NSR ST Segments: no acute changes ASA given to the pt in ED: Yes Rhythm Strip Diag. Results EP Interpretation: yes Rhythm: NSR, no PVC's, no ectopy Chest X-Ray Diagnostic Results Chest X-Ray Diagnostic Results : Chest X-Ray Ordered: Yes # of Views/Limited/Complete: 1 View Indication: Chest Pain EP Interpretation: Yes Interpretation: no consolidation, no effusion, no pneumothorax, no acute cardiopulmonary disease Impression: No acute disease Electronically Signed by: Electronically signed by Clarence Vaughn MD CT/MRI/US Diagnostic Results CT/MRI/US Diagnostic Results : Imaging Test Ordered: Pelvic ultrasound Impression Procedure: US Pelvic w/Transvag EXAM: US Pelvis Transabdominal and Transvaginal, Complete CLINICAL HISTORY: ABD PAIN TECHNIQUE: Real-time complete transabdominal and transvaginal pelvic ultrasound with image documentation. Transvaginal imaging was used for better evaluation of the endometrium and adnexa. COMPARISON: None FINDINGS: Uterus: Measures 9.1 x 4.6 x 5.1 cm. Nabothian cysts in the cervix. Endometrium measures 7.5 mm. Right ovary: Measures 1.3 x 1.7 x 1.3 cm. Normal appearance with normal color Doppler flow. Left ovary: Not visualized due to overlying bowel gas. Other: Rounded anechoic structure in the cul-de-sac may represent free fluid versus cyst. IMPRESSION: 1. Rounded anechoic structure in the cul-de-sac may represent free fluid versus cyst. 2. Left ovary not visualized due to overlying bowel gas. Dictated By: Jace Johnson MD Electronically Signed By:Jace Johnson MD Signed Date/Time06/10/20 1252 CC: Clarence Vaughn MD Last Vital Signs Date Time Temp Pulse Resp B/P (MAP) Pulse Ox O2 Delivery O2 Flow Rate FiO2 06/10/20 11:10 97.7 95 19 159/94 100 Room Air Status: improved Disposition: ADMITTED INPATIENT Condition: Serious Referrals: [facility],REFERRING (PCP) Clarence Vaughn MD Jun 10, 2020 14:28
[2020-06-10 17:32] VITALS: BP 166/95
[2020-06-10] MEDS ORDERED: Nitroglycerin Subl 0.4mg tab SL STA (17:39)
--- NOTE | 2020-06-10 17:40 | NUR ---
ED Nurse Note: Pt c/o non radiating 8/10 left side chest pain after walking to the restroom. ERMD notified. Meds given as ordered.
[2020-06-10] MEDS ORDERED: Metoprolol Tartrate 5mg/5ml Inj IVP STA (17:42)
[2020-06-10] MEDS ORDERED: Nitroglycerin 2% oint pkt TOPIC ONE (17:45)
[2020-06-10 18:05] VITALS: BP 159/93
--- NOTE | 2020-06-10 18:42 | NUR ---
ED Nurse Note: Dinner tray provided.
--- NOTE | 2020-06-10 19:05 | NUR ---
HAND-OFF: Report given to Selma BRUNO.
[2020-06-10 19:14] VITALS: BP 158/81
--- NOTE | 2020-06-10 19:14 | NUR ---
ED Nurse Note: Report received from KIANA Ochoa. Patient is resting in bed at this time. She denies any active chest pain at this time and notes she begins to feel pain only with exertion such as ambulating to the restroom. Vital signs are stable at this time as documented. NAD noted.
--- NOTE | 2020-06-10 19:15 | NUR ---
ED Nurse Note: Dr. Hill at bedside.
--- NOTE | 2020-06-10 19:19 | NUR ---
ED Nurse Note: Report given to Marcelo RN.
--- NOTE | 2020-06-10 19:20 | NUR ---
TRANSFER TO FLOOR: Patient transferred to Tele via abramroleg, accompanied by a tech and RN. Pt AAOx4, verbally responsive. No SOB, on room air. Denies CP at this time. IV line on right AC 20g patent and intact. No skin issues. All belonings sent with the patient.
--- NOTE | 2020-06-10 19:29 | NUR ---
NURSE NOTES: Received report from James Vázquez. Pt in bed, awake, alert to self, place and time. On room air, saturating well @ 100 %. In no apparent cardiac and respiratory distress noted. Complaint of chest rashid in ED but upon assessment pt denies any pain or discomfort at the moment. PIV on R AC # 20 g SL, intact, patent and flushed well. Skin is intact. Bed is locked and in lowest position, bed alarm on, call light within reach. Will continue to monitor pt. Will continue with the plan of care.
--- NOTE | 2020-06-10 20:15 | NUR ---
NURSE NOTES: Verified admission orders with Dr Myles, continue home meds. Aware of the elevated wbc and troponin level. No new order at this moment.
[2020-06-10] MEDS ORDERED: Nitroglycerin Subl 0.4mg tab SL PRN (21:00)
[2020-06-10] MEDS ORDERED: Albuterol 90mcg Inhaler 8gm INH PRN (21:00)
--- NOTE | 2020-06-10 21:27 | Cardiac Electrophysiology PN ---
Subjective Subjective [id number] Objective Last 24 Hour Vital Signs Date Time Temp Pulse Resp B/P (MAP) Pulse Ox O2 Delivery O2 Flow Rate FiO2 06/10/20 19:19 98.2 90 19 158/81 100 Room Air 06/10/20 19:14 98.2 84 20 158/81 99 Room Air 06/10/20 18:05 97.7 78 20 159/93 100 Room Air 06/10/20 17:57 89 203/117 06/10/20 17:49 203/117 06/10/20 17:49 203/117 06/10/20 17:32 97.7 89 19 166/95 99 Room Air 06/10/20 14:00 97.7 88 16 161/99 99 Room Air 06/10/20 11:10 97.7 95 19 159/94 100 Room Air 06/10/20 11:10 95 18 Room Air 06/10/20 11:04 97.7 95 18 187/119 (141) 96 Room Air Laboratory Tests Test 06/10/20 11:38 06/10/20 16:10 White Blood Count 11.8 K/UL (4.8-10.8) H Red Blood Count 4.23 M/UL (4.20-5.40) Hemoglobin 10.2 G/DL (12.0-16.0) L Hematocrit 35.0 % (37.0-47.0) L Mean Corpuscular Volume 83 FL (80-99) Mean Corpuscular Hemoglobin 24.2 PG (27.0-31.0) L Mean Corpuscular Hemoglobin Concent 29.3 G/DL (32.0-36.0) L Red Cell Distribution Width 18.6 % (11.6-14.8) H Platelet Count 284 K/UL (150-450) Mean Platelet Volume 7.8 FL (6.5-10.1) Neutrophils (%) (Auto) 74.7 % (45.0-75.0) Lymphocytes (%) (Auto) 16.5 % (20.0-45.0) L Monocytes (%) (Auto) 4.7 % (1.0-10.0) Eosinophils (%) (Auto) 2.9 % (0.0-3.0) Basophils (%) (Auto) 1.2 % (0.0-2.0) Prothrombin Time 10.8 SEC (9.30-11.50) Prothromb Time International Ratio 1.0 (0.9-1.1) Activated Partial Thromboplast Time 28 SEC (23-33) D-Dimer 0.26 mg/L FEU (0.00-0.49) Urine Color Red Urine Appearance Very cloudy Urine pH 6.5 (4.5-8.0) Urine Specific [place] 1.015 (1.005-1.035) Urine Protein 4+ (NEGATIVE) H Urine Glucose (UA) Negative (NEGATIVE) Urine Ketones 1+ (NEGATIVE) H Urine Blood 5+ (NEGATIVE) H Urine Nitrite Negative (NEGATIVE) Urine Bilirubin Negative (NEGATIVE) Urine Urobilinogen Normal MG/DL (0.0-1.0) Urine Leukocyte Esterase 2+ (NEGATIVE) H Urine RBC Tntc /HPF (0 - 2) H Urine WBC 2-4 /HPF (0 - 2) Urine Squamous Epithelial Cells Few /LPF (NONE/OCC) Urine Bacteria Few /HPF (NONE) Urine HCG, Qualitative Negative (NEGATIVE) Sodium Level 138 MMOL/L (136-145) Potassium Level 4.0 MMOL/L (3.5-5.1) Chloride Level 103 MMOL/L (98-107) Carbon Dioxide Level 27 MMOL/L (21-32) Anion Gap 8 mmol/L (5-15) Blood Urea Nitrogen 9 mg/dL (7-18) Creatinine 1.0 MG/DL (0.55-1.30) Estimat Glomerular Filtration Rate > 60 mL/min (>60) Glucose Level 120 MG/DL (74-106) H Calcium Level 8.5 MG/DL (8.5-10.1) Total Bilirubin 0.4 MG/DL (0.2-1.0) Aspartate Amino Transf (AST/SGOT) 32 U/L (15-37) Alanine Aminotransferase (ALT/SGPT) 19 U/L (12-78) Alkaline Phosphatase 87 U/L (46-116) Troponin I 1.295 ng/mL (0.000-0.056) 1.356 ng/mL (0.000-0.056) Total Protein 7.7 G/DL (6.4-8.2) Albumin 3.4 G/DL (3.4-5.0) Globulin 4.3 g/dL Albumin/Globulin Ratio 0.8 (1.0-2.7) L Urine Opiates Screen Negative (NEGATIVE) Urine Barbiturates Screen Negative (NEGATIVE) Phencyclidine (PCP) Screen Negative (NEGATIVE) Urine Amphetamines Screen Negative (NEGATIVE) Urine Benzodiazepines Screen Negative (NEGATIVE) Urine Cocaine Screen Negative (NEGATIVE) Urine Marijuana (THC) Screen Positive (NEGATIVE) H Naseem Parks MD Jun 10, 2020 21:27
[2020-06-10] MEDS ORDERED: Albuterol ud Inhalation HHN PRN ×2 (21:30)
--- NOTE | 2020-06-10 23:30 | Consultation ---
DATE OF CONSULTATION: 06/10/2020 CARDIOLOGY CONSULTATION REFERRING PHYSICIAN: Cosmo Myles M.D. REASON FOR CONSULTATION: [id number] myocardial infarction. HISTORY OF PRESENT ILLNESS: The patient is a 34-year-old lady with a history of hypertension and morbid obesity, who presented to the emergency room complaining of off and on chest pain over the last 4 days. The patient also stated that she has been having extensive vaginal bleeding in the last 2 weeks, but it is not . The patient denies any nausea, vomiting, or diaphoresis. The patient does not have any chest pain, however, she gets chest discomfort. Initial troponin in the emergency room was elevated at 1.295 and followup troponin remains essentially the same at 1.35. At the time of my evaluation, the patient was seen in the emergency room and does not have any chest pain. REVIEW OF SYSTEMS: Negative other than what is mentioned in history of present illness. PAST MEDICAL HISTORY: As mentioned above. FAMILY HISTORY: Noncontributory. SOCIAL HISTORY: She lives at home. Does not smoke or drink alcohol or use any drugs. PHYSICAL EXAMINATION: VITAL SIGNS: Blood pressure was as high as 202/117, currently 158/81, pulse is 90, respiration 19, temperature 98.2. HEAD AND NECK: No JVD. LUNGS: Coarse rhonchi. CARDIOVASCULAR: Regular S1 and S2 with no gallop. ABDOMEN: Soft and obese. EXTREMITIES: No pitting edema. LABORATORY AND DIAGNOSTIC DATA: Her labs show sodium 138, potassium 4.0, BUN of 9, creatinine of 1, and glucose of 120. Troponin is 1.295 and 1.356. Her white count is 11.8, hemoglobin 10.7, hematocrit 35, platelet count of 284. D-dimer is 0.26 and urine tox screen is positive for marijuana. Her EKG showed sinus rhythm with nonspecific ST-T wave abnormality. ASSESSMENT AND PLAN: 1. [id number] myocardial infarction in this 34-year-old lady with hypertension, morbid obesity, chest pain, and troponin elevation. The patient's EKG does not show any ST elevation. We will treat the patient medically with aspirin and beta-natalie and statin. The patient is already on metoprolol 25 mg b.i.d. Discontinue Inderal. 2. Hypertension, on metoprolol 25 mg b.i.d. and hydrochlorothiazide 25 mg daily and amlodipine 5 mg daily. 3. COPD, has asthma, on prednisone. 4. Morbid obesity. 5. Vaginal bleeding. [employer] evaluation is pending. A transvaginal ultrasound was performed already. Echocardiogram is also pending. Thank you very much for allowing me to participate in the care of this patient. Please do not hesitate to contact me for any questions regarding my evaluation. Naseem Parks M.D. DR: GINA JOB#: [id number] CC:
[2020-06-11] VITALS: BP 151/92
[2020-06-11 04:00] VITALS: BP 160/98
--- NOTE | 2020-06-11 07:27 | NUR ---
NURSE HAND-OFF REPORT: Important Events on Shift: Stable Patient Status: Stable Diet: Cardiac Pending Orders: Pending Results/Labs: Pending MD notification: Latest Vital Signs: Temperature 97.7 , Pulse 77 , B/P 160 /98 , Respiratory Rate 23 , O2 SAT 97 , Room Air, O2 Flow Rate . Vital Sign Comment: EKG Rhythm: Sinus Rhythm Rhythm change?: N MD Notified?: - MD Response: Latest Shi Fall Score: 20 Fall Risk: Low Risk Safety Measures: Call light Within Reach, Bed Alarm Zone 1, Side Rails Side Rails x1, Bed position Low and Locked. Fall Precautions: Yellow Socks Yellow Gown Door Sign Patient Fall Education Report given to KIANA Cruz
[2020-06-11 08:00] VITALS: BP 149/93
--- NOTE | 2020-06-11 08:00 | NUR ---
NURSE NOTES: Pt was assessed after receiving change of shift report from Luis Miguel BRUNO. Pt is awake, alert, oriented x4, sitting up in bed, having breakfast. Pt denies any chest pain or other discomfort at this time. On room air at 99% O2Sat with no respiratory distress. NSR per Tele monitor. Temp 98.1F axillary. Peripheral IV access present on right AC#20G, saline locked, patent/intact. Pt ambulates to the toilet inside her room for urination. Skin is intact. Pt reports previous vaginal bleeding to have stopped at this time. Bed is locked, and call light is placed within easy reach. Will continue with plan of care.
[2020-06-11] MEDS ORDERED: Hyzaar 50-12.5mg tab ORAL SCH (09:00)
[2020-06-11] MEDS: Montelukast 10mg tablet ORAL SCH ×2 (09:00→09:14)
[2020-06-11] MEDS ORDERED: Propranolol 10mg tab ORAL SCH (09:00)
[2020-06-11] MEDS: hydroCHLOROthiazide 25mg cap ORAL SCH (09:14)
--- NOTE | 2020-06-11 10:00 | NUR ---
NURSE NOTES: AM meds were administered; pt refused Singulair PO. Pt consumed 100% of breakfast meal this morning. Denies any pain or discomfort at this time.
--- NOTE | 2020-06-11 11:24 | NUR ---
CASE MANAGEMENT:REVIEW 34YR OLD FEMALE PRESENTED TO ER CC: INTERMITTENT CHEST PAIN AND HEAVY VAGINAL BLEEDING SI: NSTEMI. VAGINAL BLEEDING. HTN 97.7 95 18 187/119 96% ON RA WBC+11.8 TROPONIN(+) 1.295 AND 1.356 IS: 1L NS BOLUS ASA PO NITRO SL STAT NITRO 1" TO CW IV LOPRESSOR CXR PELVIC US : TO STEP DOWN UNIT DCP; FROM HOME PLAN: CARDIAC CONSULT
[2020-06-11 12:00] VITALS: BP 165/95
--- NOTE | 2020-06-11 12:00 | NUR ---
NURSE NOTES: Pt is sitting up in bed, having lunch. Remains on room air at 98% O2Sat and no respiratory distress. Denies any chest pain or discomfort. Pt was seen by Dr. Myles. ordered 2DEcho, which is already placed by Dr. Parks, and awaiting for pest control service technician.
--- NOTE | 2020-06-11 13:00 | History and Physical Report ---
DATE OF ADMISSION: 06/10/2020 HISTORY OF PRESENT ILLNESS: This is a 34-year-old female who came to the emergency room for having recurrent chest pain, palpitation, short of breath, and having vaginal bleeding. The patient was found to have positive troponin. PAST MEDICAL HISTORY: Significant for hypertension, retinopathy, comorbid obesity, asthma. MEDICATIONS: Albuterol inhaler, amlodipine, Lipitor, clonidine, hydrochlorothiazide, metoprolol, Singulair, nitroglycerin. ALLERGIES: NKA. FAMILY HISTORY: Noncontributory. SOCIAL HISTORY: The patient lives at home with the family. Denies any smoking and drinking. REVIEW OF SYSTEMS: Generalized weakness, tired, fatigue, having vaginal bleeding for the last three to four days, yesterday slowed down but again started this morning. No chest pain. Her past medical history as listed. PHYSICAL EXAMINATION: GENERAL: This is a young patient. VITAL SIGNS: Blood pressure is high 158/109, pulse 85, respiration 21, temperature 97.9. SKIN: Good skin turgor . HEENT: AT/NC. EOMI. PERRLA. NECK: Supple. No JVD. CHEST: Bilaterally few crackles. CARDIOVASCULAR: Regular rhythm. ABDOMEN: Soft. Positive bowel sounds. Nontender. EXTREMITIES: No edema. GENITOURINARY: Deferred. LABORATORY AND DIAGNOSTIC DATA: White count 12,000, hemoglobin 10, hematocrit 35, platelets are 284. Chemistry panel, sodium 138, potassium 4, BUN 9, creatinine 1. Troponins are 1.295 to 1.323. Her urine has 2+ leukocyte esterase, TNTC. Toxicology report is positive for marijuana. The patient has a ultrasound of pelvis, rounded and anechoic cul-de-sac may represent free fluid versus cyst, left ovary not visualized due to overlying bowel gas. Her chest x-ray, no acute disease identified. ASSESSMENT: 1. Vaginal bleeding. 2. Acute CT, non-STEMI. 3. Comorbid obesity. 4. Hypertension. 5. Hyperlipidemia. 6. UTI PLAN: We will add Lipitor. Continue Singulair. Continue Norvasc. Continue hydrochlorothiazide, albuterol, metoprolol. Cardiology is on consult. Monitor hemoglobin. The patient is not a candidate for anticoagulation due to the vaginal bleeding. We will order labs and 2D echo tomorrow. Aly Myles M.D. DR: Ronny JOB#: [id number] CC:
--- NOTE | 2020-06-11 14:00 | NUR ---
NURSE NOTES: Pt consumed 100% of lunch meal. Pt reports restart of vaginal bleeding, however denies any pain or discomfort. Sanitary pad given to pt, currently pt is resting, reclined in bed, watching TV.
[2020-06-11 16:00] VITALS: BP 155/96
--- NOTE | 2020-06-11 17:00 | NUR ---
NURSE NOTES: Pt consumed 100% of dinner meal. Denies any chest pain or other discomfort. Remains on room with 99% O2Sat and zero respiratory distress. Pt ambulates to the toilet in her room for urination.
--- NOTE | 2020-06-11 19:00 | NUR ---
TRANSFER TO FLOOR: Patient transferred to Tele from SDU via hospital bed while being on Tele monitor. Hand off report was given to Rashid BRUNO. Pt's belonging's list was checked/signed with the receiving nurse in front of the pt. Skin is intact. Endorsed plan of care.
--- NOTE | 2020-06-11 19:05 | NUR ---
NURSE NOTES: Pt transfer from SDU by KIANA Cruz with chart/labels/charge nurse notes, awake/alert, breathing easily on room air, denies SOB and denies pain at this time. Vital signs stable with SR @ 84 on monitor. IV access RAC, flushed with 10 ml NS and locked. Bed left in low position, side rails up x 2 and call light left neat pt's hand.
--- NOTE | 2020-06-11 19:35 | NUR ---
NURSE NOTES: Pt is awake/alert x 4, breathing easily on room air, denies SOB and denies pain/chest pain at this time. Heart mary at 81 on environmental monitoring technician however BP is elevated, will retake. Metoprolol will be given and will monitor BP after. IV access RAC, patent and flushed with 10 ml NS and locked. Bed left in low position, side rails up x 2 and call light is within reach. will continue to monitor
[2020-06-11 19:46] VITALS: BP 162/101
[2020-06-11] MEDS: Atorvastatin 20mg tab ORAL SCH (20:10)
--- NOTE | 2020-06-11 20:11 | NUR ---
NURSE NOTES: Pt refused atorvastatin as she said that is an old medication and her primary care doctor told her not to take that. Documented and returned to the medical centers
--- NOTE | 2020-06-11 20:19 | NUR ---
NURSE NOTES: Pt showed me the amount of bleeding, approximately 1 tsp or 5 ml blood in urine, asked her to show me so I can make note of it and track amounts over time.
--- NOTE | 2020-06-11 20:34 | Cardiology Report ---
APPROVED REPORT EKG Measurement Heart [id number] <Conclusion> Normal sinus rhythm Nonspecific ST and T wave abnormality Prolonged QT Abnormal ECG
--- NOTE | 2020-06-11 20:36 | Cardiology Report ---
APPROVED REPORT EKG Measurement Heart [id number] <Conclusion> Normal sinus rhythm Moderate voltage criteria for LVH, may be normal variant Nonspecific ST and T wave abnormality Prolonged QT Abnormal ECG
[2020-06-12] VITALS: BP 148/94
[2020-06-12 04:00] VITALS: BP 147/106
--- NOTE | 2020-06-12 04:00 | NUR ---
NURSE NOTES: Pt stated that the last time she voided there was no more bleeding (had period on 05/28 and had been bleeding for 2 weeks straight
--- NOTE | 2020-06-12 06:26 | Consultation ---
History of Present Illness General Chief Complaint: Chest Pain Present Illness Allergies: Coded Allergies: No Known Allergies (Verified , 04/25/07) Medication History Scheduled Amlodipine Besylate (Norvasc), 5 MG ORAL DAILY Azithromycin* (Zithromax*), 250 MG ORAL DAILY Hydrochlorothiazide* (Hydrochlorothiazide*), 25 MG ORAL DAILY, (Reported) Losartan/Hydrochlorothiazide 50-12.5 Tablet* (Hyzaar 50-12.5 Tablet*), 1 TAB ORAL DAILY Metoprolol Tartrate* (Metoprolol Tartrate*), 25 MG ORAL EVERY 12 HOURS, (Reported) Montelukast Sodium* (Singulair*), 10 MG ORAL DAILY Prednisone* (Prednisone*), 40 MG ORAL DAILY Prednisone* (Prednisone*), 40 MG ORAL DAILY Propranolol Hcl* (Inderal*), 10 MG ORAL BID Scheduled PRN Albuterol Sulfate* (Albuterol Sulfate Mdi*), 2 PUFF INH Q4H PRN for cough/wheezing Patient History Healthcare decision maker Resuscitation status Advanced Directive on File Physical Exam Last 24 Hour Vital Signs Date Time Temp Pulse Resp B/P (MAP) Pulse Ox O2 Delivery O2 Flow Rate FiO2 06/12/20 04:00 97.9 80 21 147/106 (120) 98 06/12/20 03:55 Room Air 06/12/20 03:45 70 06/12/20 00:12 73 06/12/20 00:00 98.0 79 20 148/94 (112) 98 06/12/20 00:00 Room Air 06/11/20 20:10 80 162/101 06/11/20 20:00 Room Air 06/11/20 19:48 80 06/11/20 19:46 97.9 80 22 162/101 (121) 97 06/11/20 16:23 80 06/11/20 16:00 Room Air 06/11/20 16:00 97.9 81 21 155/96 (115) 98 06/11/20 12:29 71 06/11/20 12:00 97.9 70 23 165/95 (118) 97 06/11/20 12:00 Room Air 06/11/20 09:14 77 160/98 06/11/20 09:14 77 160/98 06/11/20 08:00 82 06/11/20 08:00 Room Air 06/11/20 08:00 98.1 81 20 149/93 (111) 99 Intake and Output 06/11/20 06/12/20 19:00 07:00 Intake Total 600 ml Balance 600 ml Intake Oral 600 ml # Voids 5 Height (Feet): 5 Height (Inches): 6.00 Weight (Pounds): 316 Medications Current Medications Medications (Trade) Dose Ordered Sig/Henry Route PRN Reason Start Time Stop Time Status Last Admin Dose Admin Albuterol Sulfate (Proventil) 2.5 mg Q4H PRN HHN Shortness of Breath 06/10/20 21:30 06/15/20 21:29 Amlodipine Besylate (Norvasc) 5 mg DAILY ORAL 06/11/20 09:00 07/11/20 08:59 06/11/20 09:14 Atorvastatin Calcium (Lipitor) 20 mg BEDTIME ORAL 06/11/20 21:00 09/09/20 20:59 Clonidine HCl (Catapres Tab) 0.1 mg Q4H PRN ORAL sbp>170 06/10/20 21:30 09/08/20 21:29 Hydrochlorothiazide (Hydrodiuril) 25 mg DAILY ORAL 06/11/20 09:00 07/11/20 08:59 06/11/20 09:14 Metoprolol Tartrate (Lopressor) 25 mg Q12HR ORAL 06/10/20 21:00 09/08/20 20:59 06/11/20 20:10 Montelukast Sodium (Singulair) 10 mg DAILY ORAL 06/11/20 09:00 09/09/20 08:59 Nitroglycerin (Ntg) 0.4 mg Q6H PRN SL Chest Pain 06/10/20 21:00 07/10/20 20:59 Assessment/Plan Assessment/Plan: Hematology Consultation RECalvin YIP: Martínez Myles Chief Complaint: Chest Pain RFC: Anemia, bleeding DOS HPI 34-year-old female presents to ED for chest pain. Has had on and off chest pain for the last 4 days. Comes and goes. Across her chest. Dull, 7 out of 10, nonradiating. Denies chest pain at this time. Denies shortness of breath. States she is also been having vaginal bleeding for the last 2 weeks. States that this is not in sync with her period. States she had a. Previously which lasted longer than usual then subsided and then she started bleeding again. Denies any blood thinners. Does not believe she is . Denies any abdominal pain. No other aggravating relieving factors. Denies any other associated symptoms Coded Allergies: No Known Allergies (Verified , 04/25/07) COVID-19 Screening Contact w/high risk pt: No Recent Travel to affected area: No Experienced COVID-19 symptoms?: No COVID-19 symptoms experienced: Shortness of Breath COVID-19 Testing performed APPLIANCE COUNSELOR: No Patient History Past Medical History: HTN, asthma Past Surgical History: none Pertinent Family History: none Social History: Denies: smoking, alcohol use, drug use Now: No Immunizations: UTD Reviewed Nursing Documentation: PMH: Agreed; PSxH: Agreed Nursing Documentation-PMH Hx Cardiac Problems: No - pneumonia Hx Hypertension: Yes Hx Asthma: Yes Review of Systems All Other Systems: negative except mentioned in HPI Physical Exam General Appearance: no apparent distress, obese Head: normocephalic, atraumatic Eyes: bilateral eye normal inspection, bilateral eye PERRL ENT: hearing grossly normal, normal pharynx Neck: full range of motion, supple/symm/no masses Respiratory: chest non-tender, lungs clear Cardiovascular: regular rate, rhythm, no edema Gastrointestinal: normal bowel sounds, non tender Rectal: deferred Genitourinary: normal inspection, no CVA tenderness Lymphatic: no adenopathy Labs: reviewed Imaging: noted A/Recs # Anemia due to vaginal bleeding, r/o iron deficiency --> anemia workup has been ordered --> transvaginal us ordered as well --> as per pin pusher eval --> no hemolysis is noted # Leukocytosis likely reactive, no e/o infection --> trend 11 # Nstemi, for medical management --> BB, asa, and lipitor per cards # Marijuana use --> recreational use # Hypotension --> ivf was given # Dvt ppx scds Appreciate consultation and Charlie Lee Rn, MD Jun 12, 2020 06:26
--- NOTE | 2020-06-12 07:47 | NUR ---
NURSE HAND-OFF REPORT: Important Events on Shift: Patient Status: [stable, bleeding stopped (LMP 11/8 and had been bleeding for 2 weeks straight, only slight bleeding last night whch stopped by 4am] Diet: Pending Orders: Pending Results/Labs: Pending MD notification: Latest Vital Signs: Temperature 97.9 , Pulse 80 , B/P 147 /106 , Respiratory Rate 21 , O2 SAT 98 , Room Air, O2 Flow Rate . Vital Sign Comment: EKG Rhythm: Sinus Rhythm Rhythm change?: N MD Notified?: - MD Response: Latest Shi Fall Score: 20 Fall Risk: Low Risk Safety Measures: Call light Within Reach, Bed Alarm Zone 1, Side Rails Side Rails x1, Bed position Low and Locked. Fall Precautions: Yellow Socks Yellow Gown Door Sign Patient Fall Education Report given to Suzy Report given to KIANA Doe
--- NOTE | 2020-06-12 07:49 | NUR ---
NURSE NOTES: Received patient report from Rashid RN and Harini RN. Patient is AO x4 awake and able to make needs known. Patient shows no signs of distress or pain at the moment. IV intact. No signs of erythema, infiltration, or bleeding. Patient is on room air and shows no signs of respiratory distress. Bed is in the lower position, call light is within reach, side rails up x3. Will continue to monitor.
[2020-06-12 08:00] VITALS: BP 162/97
--- NOTE | 2020-06-12 08:36 | NUR ---
CASE MANAGEMENT:REVIEW 06/12/20 SI: NSTEMI. VAGINAL BLEEDING 97.9 80 21 147/106 98% ON RA LAST TROPONIN(+) 1.32 CBC PENDING AT THIS TIME IS: LIPITOR PO QHS SINGULAR PO QD NORVASC PO QD HCTZ PO QD LOPRESSOR PO Q12 : TELEMETRY STATUS DCP; FROM HOME PLAN: NOT A CANDIDATE FOR ANTICOAGULATION TREAT NSTEMI MEDICALLY W/ASA AND BETA BARRY CLARIFIER OPERATOR HELPER CONSULT
--- NOTE | 2020-06-12 08:39 | Cardiac Electrophysiology PN ---
Assessment/Plan Assessment/Plan 1. [id number] myocardial infarction in this 34-year-old lady with hypertension, morbid obesity, chest pain, and troponin elevation. The patient's EKG does not show any ST elevation. Continue aspirin, Metoprolol 25 bid and statin. Tox screen positive only for THC Echo Nl EF. Likely needs cardiac cath after vaginal bleeding stops.No CP today 2. Hypertension, on metoprolol 25 mg b.i.d. and hydrochlorothiazide 25 mg daily and amlodipine 5 mg daily. 3. COPD, has asthma, on prednisone. 4. Morbid obesity. 5. Vaginal bleeding and anemia. MUSEUM ARCHIVIST evaluation is pending. A transvaginal ultrasound was performed already.Dr Moreno following Subjective Subjective Alert in NAD. No chest pain or sob. Objective Last 24 Hour Vital Signs Date Time Temp Pulse Resp B/P (MAP) Pulse Ox O2 Delivery O2 Flow Rate FiO2 06/12/20 04:00 97.9 80 21 147/106 (120) 98 06/12/20 03:55 Room Air 06/12/20 03:45 70 06/12/20 00:12 73 06/12/20 00:00 98.0 79 20 148/94 (112) 98 06/12/20 00:00 Room Air 06/11/20 20:10 80 162/101 06/11/20 20:00 Room Air 06/11/20 19:48 80 06/11/20 19:46 97.9 80 22 162/101 (121) 97 06/11/20 16:23 80 06/11/20 16:00 Room Air 06/11/20 16:00 97.9 81 21 155/96 (115) 98 06/11/20 12:29 71 06/11/20 12:00 97.9 70 23 165/95 (118) 97 06/11/20 12:00 Room Air 06/11/20 09:14 77 160/98 06/11/20 09:14 77 160/98 Intake and Output 06/11/20 06/12/20 19:00 07:00 Intake Total 600 ml Balance 600 ml Intake Oral 600 ml # Voids 5 4 Objective HEAD AND NECK: No JVD. LUNGS: Coarse rhonchi. CARDIOVASCULAR: Regular S1 and S2 with no gallop. ABDOMEN: Soft and obese. EXTREMITIES: No pitting edema. Naseem Parks MD Jun 12, 2020 08:39
[2020-06-12] MEDS: hydroCHLOROthiazide 25mg cap ORAL SCH (08:41)
[2020-06-12] MEDS: Montelukast 10mg tablet ORAL SCH (08:42)
[2020-06-12 09:02] LABS: BASOPHILS % (AUTO) 0.9 % (0.0-2.0); EOSINOPHILS % (AUTO) 2.8 % (0.0-3.0); HEMOGLOBIN 9.1 G/DL (12.0-16.0); LYMPHOCYTES % (AUTO) 18.8 % (20.0-45.0); MEAN CORPUSCULAR VOLUME 83 FL (80-99); MONOCYTES % (AUTO) 4.5 % (1.0-10.0); PLATELET COUNT 303 K/UL (150-450); RED BLOOD COUNT 3.75 M/UL (4.20-5.40); WHITE BLOOD COUNT 12.7 K/UL (4.8-10.8)
--- NOTE | 2020-06-12 10:38 | Cardiology Report ---
APPROVED REPORT EXAM: Two-dimensional and M-mode echocardiogram with Doppler and color Doppler. INDICATION Chest Pain M-Mode DIMENSIONS IVSd0.9 (0.7-1.1cm)Left Atrium (MM)3.1 (1.6-4.0cm) LVDd6.5 (3.5-5.6cm)Aortic Root2.8 (2.0-3.7cm) PWd0.9 (0.7-1.1cm)Aortic Cusp Exc.1.7 (1.5-2.0cm) IVSs1.4 cmEPSS0.6 (>1.0cm) LVDs4.3 (2.5-4.0cm) PWs1.4 cm Other Information Technically limited study due to body habitus. <Conclusion> Technically difficult study due to poor parasternal acoustical windows. Normal left ventricular chamber size, systolic function and wall motion to extent visualized. Left ventricular ejection fraction estimated to be 60%. No evidence of left ventricular hypertrophy. Small pericardial effusion. Left atrial size at upper limits of normal. Right cardiac chamber sizes are within normal limits. Focal aortic valve sclerosis with adequate cusp excursion. Thickened mitral valve leaflets with normal excursion. Mitral annulus and aortic root calcification. Pulmonic valve not visualized. Normal tricuspid valve structure. IVC at normal size with physiologic collapse. A color flow and spectral Doppler study was performed and revealed: No aortic regurgitation. Trace mitral regurgitation. Mitral inflow velocities indicates possible pseudo normalization pattern implying moderately elevated left atrial pressure (Grade II ). Trace tricuspid regurgitation. Tricuspid systolic velocities suggests peak right ventricular systolic pressure of 18 mmHg.
[2020-06-12] MEDS ORDERED: AMLODIPINE BESY10 MG ORAL (11:30)
[2020-06-12] MEDS ORDERED: FLUTICASONE PRO16 G1 NASAL (11:30)
[2020-06-12 12:00] VITALS: BP 149/80
[2020-06-12 16:00] VITALS: BP 162/101
--- NOTE | 2020-06-12 17:07 | General Progress Note ---
Subjective HEENT: Reports: no symptoms Cardiovascular: Reports: chest pain Respiratory: Reports: shortness of breath Gastrointestinal/Abdominal: Reports: no symptoms Endocrine: Reports: increased hunger Allergies: Coded Allergies: No Known Allergies (Verified , 04/25/07) Subjective doing better sob no chest pain intermittent vaginal bleeding Objective Last 24 Hour Vital Signs Date Time Temp Pulse Resp B/P (MAP) Pulse Ox O2 Delivery O2 Flow Rate FiO2 06/12/20 12:15 69 06/12/20 12:00 98.1 69 16 149/80 (103) 98 06/12/20 09:22 Room Air 06/12/20 08:42 89 162/97 06/12/20 08:41 89 162/97 06/12/20 08:00 97.9 89 20 162/97 (118) 98 06/12/20 08:00 88 06/12/20 04:00 97.9 80 21 147/106 (120) 98 06/12/20 03:55 Room Air 06/12/20 03:45 70 06/12/20 00:12 73 06/12/20 00:00 98.0 79 20 148/94 (112) 98 06/12/20 00:00 Room Air 06/11/20 20:10 80 162/101 06/11/20 20:00 Room Air 06/11/20 19:48 80 06/11/20 19:46 97.9 80 22 162/101 (121) 97 Intake and Output 06/11/20 06/12/20 19:00 07:00 Intake Total 600 ml Balance 600 ml Intake Oral 600 ml # Voids 5 4 Laboratory Tests 06/12/20 08:25: White Blood Count 12.7H, Red Blood Count 3.75L, Hemoglobin 9.1L, Hematocrit 31.0L, Mean Corpuscular Volume 83, Mean Corpuscular Hemoglobin 24.2L, Mean Corpuscular Hemoglobin Concent 29.3L, Red Cell Distribution Width 19.0H, Platelet Count 303, Mean Platelet Volume 7.3, Neutrophils (%) (Auto) 73.0, Lymphocytes (%) (Auto) 18.8L, Monocytes (%) (Auto) 4.5, Eosinophils (%) (Auto) 2.8, Basophils (%) (Auto) 0.9, Ferritin 32 Height (Feet): 5 Height (Inches): 6.00 Weight (Pounds): 316 General Appearance: alert EENT: PERRL/EOMI Neck: normal alignment, supple Cardiovascular: regular rhythm Respiratory/Chest: crackles/rales Abdomen: non tender, soft Extremities: non-tender Edema: trace edema Neurologic: segment assembler II-XII grossly normal, alert, oriented x 3 Skin: warm/dry Assessment/Plan Assessment/Plan: 1 acs echo ef 60 2 vaginal bleeding 3 htn accelerated 4 + troponnin 5 comorbid obesity 6 asthma cont current medical tx recomended to loose wt cardiology on the case transfer to medical floor Cosmo Myles MD Jun 12, 2020 17:07
--- NOTE | 2020-06-12 19:15 | NUR ---
NURSE NOTES: Important Events on Shift: Received report from Rashid Joe, civil engineer's aide. Pt is alert and oriented x 4, denies pain, VS WNL. Pt has order to transfer to Med Surg. Pt made aware and verbalized understanding. Will continue to monitor closely. Will continue plan of care. Patient Status: stable throughout shift per report. Diet: cardiac Pending Orders: transfer to ID Pending Results/Labs: none Pending MD notification: none Latest Vital Signs: Temperature 97.9 , Pulse 83 , B/P 127 /70 , Respiratory Rate 22 , O2 SAT 97 , Room Air, O2 Flow Rate . Vital Sign Comment: stable throughout shift. EKG Rhythm: Sinus Rhythm Rhythm change?: N MD Notified?: - MD Response: Latest Shi Fall Score: 20 Fall Risk: Low Risk Safety Measures: Call light Within Reach, Bed Alarm Zone 1, Side Rails Side Rails x1, Bed position Low and Locked. Fall Precautions: YES Yellow Socks Yellow Gown Door Sign Patient Fall Education
[2020-06-12 21:03] VITALS: BP 127/70
[2020-06-12] MEDS: Atorvastatin 20mg tab ORAL SCH (21:03)
--- NOTE | 2020-06-12 21:30 | NUR ---
NURSE NOTES: Pt voiced concerns about current COVID-19 exposure risks to herself and family. Pt stated that she would like to leave. This nurse explained risks and consequences of leaving AMA, pt verbalized understanding and signed AMA form. Shar notififed of AMA. Pt VS WNL, no pain or distress reported. Pt to F/U with primary PCP and superintendent commissary.
--- NOTE | 2020-06-12 21:30 | NUR ---
AMA: SEE AMA FORM.
--- NOTE | 2020-06-13 14:27 | Discharge Summary ---
Discharge Summary Discharge Summary _ DATE OF ADMISSION: 06/10/2020 DATE OF DISCHARGE: 06/12/2020 Patient left AGAINST MEDICAL ADVICE REASON FOR ADMISSION: 34 years old female with past medical history of hypertension and asthma, presented to emergency room complaining of chest pain. Patient reported intermittent chest pain for the last 4 days. Pain reported as dull , 7 out of 10 ,nonradiating, and felt across her chest. She denied shortness of breath. Patient also reported vaginal bleeding for the last 2 weeks. She denied taking any blood thinners. No abdominal pain. Upon evaluation blood pressure was elevated 187/119 , patient was afebrile. Laboratory work-up revealed mild leukocytosis with WBC 11.8, hemoglobin 10.2, hematocrit 25. Urinalysis revealed +4 protein, +2 leukocyte esterase , no pyuria and only few bacteria . Urine test was negative. Stable electrolytes and renal parameters. Glucose 120. Troponin elevated 1.295. EKG revealed sinus rhythm , no acute ischemic changes . Albumin 3.4 . Urine toxicology screen was positive for marijuana . Chest x-ray revealed no acute cardiopulmonary pathology. Transvaginal ultrasound revealed a rounded anechoic structure in the cul-de-sac, possibly representing free fluid versus cyst. Left ovary was not visualized due to overlying bowel gas. Nabothian cyst in the cervix noted. Endometrium measured 7.5 mm. Patient admitted with NSTEMI and vaginal bleeding, CONSULTANTS: truck spotter Dr. Barros sales and retail management recruiter/oncologist Dr. Quezada [facility] COURSE: Patient admitted to telemetry floor. Software Engineer Intern followed. Repeated troponin showed continuous elevation 1.356 , 1.323. EKG revealed no acute ischemic changes. Per truck spotter patient likely had NSTEMI . patient was on antiplatelet therapy with aspirin , beta blockage and statin. Patient was not a candidate for full anticoagulation given vaginal bleeding. Echocardiogram revealed preserved ejection fraction. Software Engineer Intern recommended cardiac catheterization after vaginal bleeding stops. Pain management was addressed, and pain resolved. Blood pressure was managed with beta-natalie , hydrochlorothiazide and calcium channel natalie ; remained stable. Supplemental oxygen was on board as needed to keep pulse oximetry above 92% pulmonary toilet provided with bronchodilator provided. Singulair continued JUNIOR ASSISTANT MANAGER eval was pending. hemoglobin and hematocrit were closely monitored ; remained at the baseline; prior to signing AMA hemoglobin 9.1 , hematocrit 31. DVT prophylaxis with SCD provided. Leukocytosis was most likely reactive , no evidence of infection. Anemia work-up was ordered ; no evidence of hemolysis. On 06/10 patient decided to sign AGAINST MEDICAL ADVICE. The risks and consequences of signing AGAINST MEDICAL ADVICE were discussed with patient in detail. Patient verbalized understanding, nevertheless signed AMA form and left. FINAL DIAGNOSES: NSTEMI Vaginal bleeding Morbid obesity with BMI 51 Hypertension Hyperlipidemia Anemia due to vaginal bleeding Leukocytosis, likely reactive Marijuana use I have been assigned to dictate discharge summary for this account. I was not involved in the patient's management. Danette Serna NP Jun 13, 2020 14:27
--- NOTE | 2020-06-13 16:22 | NUR ---
INSURANCE CLINICALS/DC SUMMARY FAXED TO [facility] [phone] [phone]
== END 2020-06-12 22:00 | disposition left against medical advice (07) | DRG 190 ==
LOC: EMR 11:32 → 2W 13:53 → EDBEDREQ 14:20 → 2E 06-11 18:41
DX: I21.4 Non-ST elevation (NSTEMI) myocardial infarction (principal); I10 Essential (primary) hypertension; J44.9 Chronic obstructive pulmonary disease, unspecified; E66.01 Morbid (severe) obesity due to excess calories; Z68.43 Body mass index [BMI] 50.0-59.9, adult; N93.9 Abnormal uterine and vaginal bleeding, unspecified; N39.0 Urinary tract infection, site not specified; E78.5 Hyperlipidemia, unspecified; F12.10 Cannabis abuse, uncomplicated; D50.0 Iron deficiency anemia secondary to blood loss (chronic)
CPT/HCPCS: 36415; 71045; 76830; 76856; 80053; 80307; 81003; 81025; 82728; 84484; 85025; 85379; 85610; 85730; 86850; 86900; 86901; 93005; 93306; 96361; 96374; 99291; J7030